=== PATIENT | female | born 1970 | race Caucasian/White ===

== ENCOUNTER 2018-05-08 16:26 | Emergency (ER) | payer OTHER ==
[~2018-05-08] VITALS: Ht 157.5 cm; Wt 75.5 kg
[2018-05-08 16:35] VITALS: BP 132/79
--- NOTE | 2018-05-08 16:40 | NUR ---
47Y/F BIB WITH C/O RT SIDED THROAT PAIN AFTER EATING TILAPIA WITH DIFFICULTY SWALLOWING. PT STATES THERE MAYBE A BONE STUCK IN HIS THROAT AND IT FEELS UNCOMFORTABLE. PT IS AAOX4, VSS, EVEN AND UNLABORED BREATHING AT THIS TIME, BED DOWN, LOW, LOCKED, BEDRAIL UP X 1, ER MD AWARE AND NOTIFIED OF PT STATUS. HX; HTN RX; HYDROCHLOROTHIAZIDE
--- NOTE | 2018-05-08 18:21 | NUR ---
Patient being evaluated by physician at bedside.
[2018-05-08] MEDS ORDERED: KETOROLAC 60 MG/2 ML VIAL IM ONE (18:25)
--- NOTE | 2018-05-08 19:10 | NUR ---
REPORT RECEIVED FROM KENDRA GAMA
--- NOTE | 2018-05-08 19:40 | NUR ---
Patient discharged with v/s stable. Written and verbal after care instructions given and explained. Patient verbalized understanding. Ambulatory with steady gait. All questions addressed prior to discharge. Advised to follow up with PMD. REFERRAL TO ENT
[2018-05-08 19:43] VITALS: BP 132/79
== END 2018-05-08 19:40 | disposition home or self-care (01) ==
LOC: MED 16:26
DX: T18.128A Food in esophagus causing other injury, initial encounter (principal); J02.9 Acute pharyngitis, unspecified; I10 Essential (primary) hypertension; X58.XXXA Exposure to other specified factors, initial encounter; Y93.89 Activity, other specified; Y92.89 Other specified places as the place of occurrence of the external cause; Y99.8 Other external cause status
CPT/HCPCS: 70360; 96372; 99283; J1885

== ENCOUNTER 2019-07-01 17:23 | Emergency (ER) | payer OTHER ==
[~2019-07-01] VITALS: Ht 154.9 cm; Wt 69.4 kg
[2019-07-01 17:29] VITALS: BP 121/86
--- NOTE | 2019-07-01 17:41 | NUR ---
48 Y/O FEMALE C/O SORE THROAT SINCE LAST NIGHT. PT STATES SHE WAS SEEN AT CLINIC AND THEY REFERRED PT TO ER. DENIES COUGH/SOB. AFEBRILE UPON ARRIVAL. DENIES NASAL CONGESTION. 8/10 SHARP PAIN IN THROAT, WORSE WHEN SWALLOWING. RR EVEN AND UNLABORED. VSS MEDHX: HTN ALLERIGES: NKA
[2019-07-01 18:32] VITALS: BP 121/86
--- NOTE | 2019-07-01 18:32 | NUR ---
Patient discharged with v/s stable. Written and verbal after care instructions given and explained. Patient verbalized understanding. Ambulatory with steady gait. All questions addressed prior to discharge. Advised to follow up with PMD.
--- NOTE | 2019-07-01 18:32 | NUR ---
Note rafylin in EDM - 07/01/19 at 1833 by ROSALIE Patient discharged with v/s stable. Written and verbal after care instructions given and explained. Patient alert, oriented and verbalized understanding of instructions. Ambulatory with steady gait. All questions addressed prior to discharge. ID band removed. Patient advised to follow up with PMD. Rx of Ibuprofen 600mg and Promethazine DM 6.25mg was given. Patient educated on indication of medication including possible reaction and side effects. Opportunity to ask questions provided and answered.
== END 2019-07-01 18:32 | disposition home or self-care (01) ==
LOC: MED 17:23
DX: J06.9 Acute upper respiratory infection, unspecified (principal); I10 Essential (primary) hypertension
CPT/HCPCS: 99282

== ENCOUNTER 2019-07-31 16:07 | Emergency (ER) | payer OTHER ==
[~2019-07-31] VITALS: Ht 157.5 cm; Wt 68.5 kg
--- NOTE | 2019-07-31 16:15 | NUR ---
PATIENT HAS HISTORY OF SCIATICA WHICH ACTED UP APPROX 3 DAYS AGO AND RADIATING INTO LEFT LEG. PAIN WITH AMBULATION. STEADY GAIT NOTED. ABLE TO AMBULATE TO BATHROOM WITHOUT ASSISTANCE FOR UA.
[2019-07-31 16:17] VITALS: BP 139/80
--- NOTE | 2019-07-31 16:19 | NUR ---
PT AMBULATED TO BED 11
--- NOTE | 2019-07-31 16:20 | NUR ---
BRANT MAHONEY AT BEDSIDE
[2019-07-31] MEDS ORDERED: KETOROLAC 30 MG/ML VIAL IM ONE (16:30)
[2019-07-31 17:28] VITALS: BP 119/70
--- NOTE | 2019-07-31 17:28 | NUR ---
Patient discharged with v/s stable. Written and verbal after care instructions given and explained. Patient alert, oriented and verbalized understanding of instructions. Ambulatory with steady gait. All questions addressed prior to discharge. ID band removed. Patient advised to follow up with PMD. Rx of MEDROL, & IBUPROFEN given. Patient educated on indication of medication including possible reaction and side effects. Opportunity to ask questions provided and answered.
== END 2019-07-31 17:29 | disposition home or self-care (01) ==
LOC: MED 16:07
DX: S39.012A Strain of muscle, fascia and tendon of lower back, initial encounter (principal); X58.XXXA Exposure to other specified factors, initial encounter; I10 Essential (primary) hypertension; Y93.89 Activity, other specified; Y92.89 Other specified places as the place of occurrence of the external cause; Y99.8 Other external cause status
CPT/HCPCS: 81002; 81025; 96372; 99283; J1885

== ENCOUNTER 2020-02-08 12:44 | Emergency (ER) | payer OTHER ==
[~2020-02-08] VITALS: Ht 154.9 cm; Wt 72.6 kg
[2020-02-08 12:52] VITALS: BP 144/97
--- NOTE | 2020-02-08 12:58 | NUR ---
Pt wheelchair assisted to bed 03
--- NOTE | 2020-02-08 13:02 | NUR ---
PT C/O LEFT KNEE PAIN SINCE SUNDAY X 3 DAYS AGO. LAST TOOK IBUPROFEN AT 0800 THIS AM WITH NO RELIEF. DENIES TRAUMA. STATES SHE WAS MAKING HER BED WHEN THE PAIN SUDDEN CAME ON. HX HTN . DENIES N/V/D; SKIN IS PINK/WARM/DRY; AAOX4, LUNGS CLEAR BL; HR EVEN AND REGULAR; PT DENIES ANY FEVER, CP, SOB, OR COUGH AT THIS TIME; PATIENT STATES PAIN OF 10/10 AT THIS TIME; VSS; PATIENT POSITIONED FOR COMFORT; HOB ELEVATED; BEDRAILS UP X1; BED DOWN. ER MD MADE AWARE OF PT STATUS.
[2020-02-08] MEDS ORDERED: HYDROcodone/APAP 5/325 MG 1 TAB TAB PO ONE (13:45)
[2020-02-08 14:03] VITALS: BP 135/67
--- NOTE | 2020-02-08 14:04 | NUR ---
Patient discharged with v/s stable. Written and verbal after care instructions given and explained. Patient alert, oriented and verbalized understanding of instructions. Ambulatory with ASSISTIVE DEVICE. All questions addressed prior to discharge. ID band removed. Patient advised to follow up with PMD. Rx of NORCO given. CRUTCHES GIVEN AND INSTRUCTED OF PROPER USE. Patient educated on indication of medication including possible reaction and side effects. Opportunity to ask questions provided and answered.
== END 2020-02-08 14:04 | disposition home or self-care (01) ==
LOC: MED 12:44
DX: M25.561 Pain in right knee (principal); I10 Essential (primary) hypertension; Z88.8 Allergy status to other drugs, medicaments and biological substances
CPT/HCPCS: 73562; 99283